=== PATIENT | male | born 1965 | race Caucasian/White ===

== ENCOUNTER 2024-03-27 14:48 | Emergency (ER) | payer SELFPAY ==
[2024-03-27 14:49] VITALS: BP 155/92; PULSE 65; RESP 18; TEMP 36.7; O2SAT 99; BMI 30.1
--- NOTE | 2024-03-27 15:08 | CTR_ITS ---
PROCEDURE INFORMATION: Exam: CT Lumbar Spine Without Contrast Exam date and time: 03/27/2024 3:49 PM Age: 58 years old Clinical indication: Injury or trauma; Fall; Blunt trauma (contusions or hematomas); Additional info: Trauma, fall, tenderness TECHNIQUE: Imaging protocol: Computed tomography of the lumbar spine without contrast. Radiation optimization: All CT scans at this facility use at least one of these dose optimization techniques: automated exposure control; mA and/or kV adjustment per patient size (includes targeted exams where dose is matched to clinical indication); or iterative reconstruction. COMPARISON: CT thoracic spin wo con* [id number] 03/27/2024 3:43 PM RADIATION DOSE METRICS: Total DLP (mGy-cm): 858.33 FINDINGS: Bones/joints: No acute fracture. Normal alignment. Prominent disc bulge at L2-L3, L4-L5, and L5-S1 with moderate areas of central canal stenosis at these levels. Soft tissues: Unremarkable. CT/CT lumbar spine wo con* [id number] IMPRESSION: No acute findings.
--- NOTE | 2024-03-27 15:08 | CTR_ITS ---
PROCEDURE INFORMATION: Exam: CT Head Without Contrast Exam date and time: 03/27/2024 3:33 PM Age: 58 years old Clinical indication: Injury or trauma; Fall; Blunt trauma (contusions or hematomas); Additional info: Trauma, fall, tenderness TECHNIQUE: Imaging protocol: Computed tomography of the head without contrast. Radiation optimization: All CT scans at this facility use at least one of these dose optimization techniques: automated exposure control; mA and/or kV adjustment per patient size (includes targeted exams where dose is matched to clinical indication); or iterative reconstruction. COMPARISON: CT head wo con* [id number] 08/21/2018 4:34 PM RADIATION DOSE METRICS: Total DLP (mGy-cm): 1013.18 FINDINGS: Brain: Normal. No hemorrhage. Unremarkable white matter. No mass effect. Cerebral ventricles: No ventriculomegaly. Paranasal sinuses: Visualized sinuses are unremarkable. No fluid levels. Mastoid air cells: Visualized mastoid air cells are well aerated. Bones: Unremarkable. No acute fracture. Soft tissues: Unremarkable. CT/CT head wo con* [id number] IMPRESSION: No acute intracranial abnormality.
--- NOTE | 2024-03-27 15:08 | CTR_ITS ---
PROCEDURE INFORMATION: Exam: CT Thoracic Spine Without Contrast Exam date and time: 03/27/2024 3:43 PM Age: 58 years old Clinical indication: Injury or trauma; Fall; Blunt trauma (contusions or hematomas); Additional info: Trauma, fall, tenderness TECHNIQUE: Imaging protocol: Computed tomography of the thoracic spine without contrast. Radiation optimization: All CT scans at this facility use at least one of these dose optimization techniques: automated exposure control; mA and/or kV adjustment per patient size (includes targeted exams where dose is matched to clinical indication); or iterative reconstruction. COMPARISON: CT chest wo con [id number] 03/27/2024 3:40 PM RADIATION DOSE METRICS: Total DLP (mGy-cm): 1851.2 FINDINGS: Bones/joints: No acute fracture. Normal alignment. No significant disc bulge or herniation. No severe spinal canal stenosis. No significant neural foraminal narrowing. Soft tissues: Unremarkable. CT/CT thoracic spin wo con* [id number] IMPRESSION: No acute findings.
--- NOTE | 2024-03-27 15:08 | XRR_ITS ---
PROCEDURE INFORMATION: Exam: XR Pelvis Exam date and time: 03/27/2024 3:22 PM Age: 58 years old Clinical indication: Injury or trauma; Fall; Blunt trauma (contusions or hematomas); Bilateral; Pelvic region; Additional info: Trauma, fall, tenderness TECHNIQUE: Imaging protocol: Radiologic exam of the pelvis. Views: 1 or 2 view. COMPARISON: No relevant prior studies available. FINDINGS: Bones/joints: Unremarkable. No acute fracture. Soft tissues: Unremarkable. XR/XR pelvis 1-2V* [id number] IMPRESSION: No acute findings.
--- NOTE | 2024-03-27 15:08 | XRR_ITS ---
PROCEDURE INFORMATION: Exam: XR Chest Exam date and time: 03/27/2024 3:25 PM Age: 58 years old Clinical indication: Injury or trauma; Fall; Blunt trauma (contusions or hematomas); Additional info: Trauma, fall, tenderness TECHNIQUE: Imaging protocol: Radiologic exam of the chest. Views: 2 views. COMPARISON: CR XR chest 1V [id number] 08/21/2018 4:18 PM FINDINGS: Lungs: Unremarkable. No consolidation. Pleural spaces: Unremarkable. No pleural effusion. No pneumothorax. Heart/Mediastinum: Unremarkable. No cardiomegaly. Bones/joints: Unremarkable. XR/XR chest 2V* [id number] IMPRESSION: No acute findings.
--- NOTE | 2024-03-27 15:08 | CTR_ITS ---
PROCEDURE INFORMATION: Exam: CT Chest Without Contrast; Diagnostic Exam date and time: 03/27/2024 3:40 PM Age: 58 years old Clinical indication: Injury or trauma; Fall; Blunt trauma (contusions or hematomas); Additional info: Trauma, fall, tenderness TECHNIQUE: Imaging protocol: Diagnostic computed tomography of the chest without contrast. Radiation optimization: All CT scans at this facility use at least one of these dose optimization techniques: automated exposure control; mA and/or kV adjustment per patient size (includes targeted exams where dose is matched to clinical indication); or iterative reconstruction. COMPARISON: CR XR chest 2V* [id number] 03/27/2024 3:25 PM RADIATION DOSE METRICS: Total DLP (mGy-cm): 497.05 FINDINGS: Lungs: Unremarkable. No consolidation. No masses. Pleural spaces: Unremarkable. No pneumothorax. No pleural effusion. Heart: Coronary artery calcifications present. No cardiomegaly. No pericardial effusion. Lymph nodes: Unremarkable. No enlarged lymph nodes. Vasculature: Unremarkable. No aortic aneurysm. Bones/joints: Unremarkable. No acute fracture. Soft tissues: Unremarkable. CT/CT chest con [id number] IMPRESSION: No acute findings.
--- NOTE | 2024-03-27 15:08 | CTR_ITS ---
PROCEDURE INFORMATION: Exam: CT Cervical Spine Without Contrast Exam date and time: 03/27/2024 3:37 PM Age: 58 years old Clinical indication: Injury or trauma; Fall; Blunt trauma; Additional info: Trauma, fall, tenderness TECHNIQUE: Imaging protocol: Computed tomography of the cervical spine without contrast. Radiation optimization: All CT scans at this facility use at least one of these dose optimization techniques: automated exposure control; mA and/or kV adjustment per patient size (includes targeted exams where dose is matched to clinical indication); or iterative reconstruction. COMPARISON: CT head wo con* [id number] 03/27/2024 3:33 PM RADIATION DOSE METRICS: Total DLP (mGy-cm): 196.17 FINDINGS: Bones: No acute fracture. Normal alignment. Prominent disc bulges at C3-C4 and C4-C5 moderate central canal stenosis. Lungs: Lung apices are normal. Soft tissues: Unremarkable. CT/CT cervical spin wo con* [id number] IMPRESSION: No acute findings.
[2024-03-27 15:32] LABS: Bilirubin Urine Negative (Negative); Blood Urine Negative (Negative); Glucose Urine UA Negative (Normal); Ketones Urine Trace (Negative); Leukocyte Esterase Urine Negative (Negative); Nitrate Urine Negative (Negative); Protein Urine Negative (Negative); Specific Gravity, Urine 1.023 (1.005-1.030); Urine Appearance Clear (CLEAR); Urine Color Yellow (Yellow); pH Urine 5.5 (5-7)
[2024-03-27 15:38] LABS: Add Urine Microscopic? YES; Bacteria Urine None Seen /hpf; Hyaline Casts Urine 1.65 /lpf; RBC Urine 0-2 /hpf (0-2); Squamous Epithelial Cell Urine 0-5 /hpf (0-5); WBC Urine 0-5 /hpf (0-5)
[2024-03-27 16:12] VITALS: BP 155/91; PULSE 60; RESP 16; O2SAT 98
[2024-03-27 16:42] LABS: Basophils % 0.3 %; Eosinophils # 0.1 10^3/uL (0.0-0.8); Hematocrit 39.4 % (37-53); Lymphocytes # 1.2 10^3/uL (0.8-4.8); Lymphocytes % 13.1 %; Mean Corpuscular HGB Conc 34.3 g/dL (30-55); Mean Corpuscular Hemoglobin 30.2 pg (27-33); Mean Corpuscular Volume 88.1 fl (82-101); Mean Platelet Volume 9.8 fL (7.4-10.4); Monocytes # 0.6 10^3/uL (0.2-0.9); Neutrophils # 6.99 10^3/uL (1.8-7.7); Neutrophils % 78.2 %; Nucleated Red Blood Cells % 0 %; Platelet Count 259 10^3/cmm (157-399); Red Blood Count 4.47 10^6/uL (3.85-5.65); Red Cell Distribution Width 12.7 % (12.1-15.1); White Blood Count 8.95 10^3/uL (3.29-11.43)
[2024-03-27 16:59] LABS: Alanine Aminotransferase 34 U/L (0-41); Albumin Level 4.2 g/dL (3.5-5.2); Alkaline Phosphatase 73 U/L (40-130); Anion Gap 13.7 (5-19); Aspartate Amino Transferase 23 U/L (0-40); Blood Urea Nitrogen 22 mg/dL (6-20); Calcium 9.6 mg/dL (8.5-10.5); Carbon Dioxide 26 mmol/L (22-29); Chloride 101 mmol/L (98-107); Creatinine Clr Calc Pharmacy 93.2768; Globulin 2.8 g/dL (1.3-4.6); Glomerular Filtration Rate 76.7 mL/min (90-130); Glucose 150 mg/dL (65-115); Osmolality Calculated 290 mOsm/kg (285-295); Potassium 3.7 mmol/L (3.5-5.1); Sodium 137 mmol/L (136-145); Total Bilirubin 0.5 mg/dL (0.15-1.2)
--- NOTE | 2024-03-27 17:15 | ED_ITS ---
HPI - Back Pain/Injury 2 General: Chief Complaint: Back Pain/Injury Stated Complaint: fall Time Seen by Provider: 03/27/24 14:51 History of Present Illness: Jam Lindsay is a 58-year-old man that presents to the emergency department after a fall from height. Patient reports he was on a roof when he fell through it landing on a pile of lumber. Estimated height 7 feet. He reports he landed mostly on his back but did strike his neck and head on a piece of lumber. He denies loss of consciousness. He denies anticoagulants/antiplatelets. Patient has a medical history that includes hyperlipidemia, diabetes, hypertension. He uses chewing tobacco He denies routine alcohol use or illicit substance use. Associated symptoms: Deny abdominal pain, chills, difficulty walking, dysuria, fatigue, fever(s), hematuria, nausea, urinary urgency or vomiting Related Data Home Medications Medication Instructions Recorded Confirmed amlodipine 10 mg tablet 10 mg PO DAILY 03/27/24 03/27/24 atorvastatin 10 mg tablet 10 mg PO DAILY 03/27/24 03/27/24 metformin 500 mg tablet,extended 500 mg PO DAILY 03/27/24 03/27/24 release 24 hr metoprolol tartrate 25 mg tablet 25 mg PO DAILY 03/27/24 03/27/24 sertraline 50 mg tablet 50 mg PO DAILY 03/27/24 03/27/24 telmisartan 80 1 tab PO DAILY 03/27/24 03/27/24 mg-hydrochlorothiazide 25 mg tablet Allergies Allergy/AdvReac Type Severity Reaction Status Date / Time No Known Allergies Allergy Verified 03/27/24 14:55 Review of Systems 2 General: Reports: 10 or more systems reviewed and unremarkable except in HPI and below Const: Denies: fever(s), chills, change in appetite, change in weight, fatigue or malaise Eyes: Denies: change in vision, eye discomfort, eye discharge or eye redness Card: Denies: chest pain, palpitations, irregular heart rhythm, edema, dyspnea on exertion, orthopnea or leg pain with exertion Resp: Denies: dyspnea, productive cough, non-productive cough, wheezing, stridor or chest congestion GI: Denies: abdominal pain, nausea, vomiting, dysphagia, diarrhea, constipation, bloating, GI cramping or hematochezia : Denies: flank pain, dysuria, urinary frequency, urinary urgency, urinary hesitancy, oliguria or hematuria Musc: Reports: neck pain, back pain, joint stiffness and muscle cramps; Denies: extremity pain, joint pain, joint swelling, joint redness, joint warmth or muscle weakness Skin/Breast: Denies: rash, pruritus, erythema, photosensitivity or new lesions Neuro: Denies: headache(s), numbness in extremities, weakness in extremities, sensory changes, lack of coordination, difficulty walking, frequent falls, dizziness, confusion, Slurred speech present, difficulty communicating thoughts, seizure-like activity or involuntary movements Jonathan/Lymph: Denies: easy bruising or easy bleeding Physical Exam 2 Const: COMMON NORMALS: no acute distress, patient oriented x3 and alert G ENERAL APPEARANCE: cooperative ORIENTATION/CONSCIOUSNESS: Yes awake, Yes oriented to person, Yes oriented to place and Yes oriented to time HENMT: COMMON NORMALS: normocephalic and atraumatic HEAD & SCALP: n ormocephalic and atraumatic FACE & SINUS: normal facial exam MOUTH: Normal oral and palatal mucosa present THROAT: posterior oropharynx normal Eye: COMMON NORMALS: Equal, round and reactive pupils present, EOMs intact bilaterally, conjunctivae normal and no scleral icterus GENERAL EYE: a ppearance normal, both eyes and all related structures ALIGNMENT: Yes alignment normal PERIORBITAL: periorbital findings normal CONJUNCTIVA: Yes conjunctivae normal PUPIL: Yes Equal, round and reactive pupils present Neck/C-Spine: GENERAL: Yes normal visual inspection CERVICAL SPINE: Yes Cervical spine tenderness, Yes Paracervical muscle tenderness, Yes Trapezius muscle tenderness and Yes collar present OTHER: Cramping pain in the C4, C5, C6 distribution in the left upper extremity Numbness and tingling in the left hand?C7 and C8 distribution but this is chronic and he reports it is due to carpal tunnel. 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, wrist, bicep triceps and deltoid Sensation intact to light touch throughout Lymph: LYMPHATIC: no lymphadenopathy noted Chest: COMMONS NORMALS: normal inspection of the chest Breast/axilla inspection: Yes no chest deformity, asymmetry, normal contours, no nodules, masses, tenderness Resp: COMMON NORMALS: normal respiratory effort, No retractions, No use of accessory muscles and clear to auscultation bilaterally EFFORT & INSPECTION: Yes able to speak in complete sentences and Yes symmetric chest movement A USCULTATION: clear to auscultation bilaterally Cardio: COMMON NORMALS: regular rate, regular rhythm and Peripheral pulses 2+ throughout RATE: regular rate RHYTHM: regular rhythm PERIPHERAL PULSES: Peripheral pulses 2+ throughout GI: COMMON NORMALS: Normal to inspection, nondistended, normoactive bowel sounds present, Soft to palpation, non-tender and No hepatosplenomegaly present INSPECTION: Yes normal to inspection AUSCULTATION: Yes normoactive bowel sounds PALPATION: Yes Soft to palpation and Yes No hepatosplenomegaly present RECTAL EXAM: Yes deferred Back/Pelvis: OTHER: Tenderness to palpation over the thoracic spine midline Tenderness to palpation over lumbar spine midline Denies pain numbness tingling in the lower extremities. 5/5 strength hip flexor, quad, gastroc, ant tib, toe extensors. Sensation intact to light touch throughout Extremity: COMMON NORMALS: normal to inspection GENERAL: Yes normal exam except as noted Neuro: COMMON NORMALS: patient oriented x3 SENSORIUM/ORIENTATION: Yes alert, Yes oriented to person, Yes oriented to place and Yes oriented to time CRANIAL NERVES: Yes CN normal except as noted Psych: COMMON NORMALS: mental status grossly normal, Normal thought process present, cooperative, activity/motor behavior normal, denies homicidal ideation and denies suicidal ideation THOUGHT PROCESS: Normal thought process present Skin: COMMON NORMALS: no rashes or lesions noted, no wounds and turgor normal GENERAL SKIN EXAM: no rashes or lesions noted and turgor normal Course 2 Vital Signs: Vital signs: Vital Signs Temperature 98.1 F 03/27/24 14:49 Pulse Rate 60 03/27/24 16:12 Respiratory Rate 16 03/27/24 16:12 Blood Pressure 155/91 03/27/24 16:12 Pulse Oximetry 98 03/27/24 16:12 Oxygen Delivery Me thod Room Air 03/27/24 16:12 MDM - Back Pain/Injury Medical Decision Making Patient was evaluated in the emergency department today after a fall from 7 feet. Patient reports he fell through a roof landing on a pile of lumber. He had no loss of consciousness He underwent a chest x-ray as well as a pelvis x-ray which revealed no acute findings. We ordered a CT head, cervical, thoracic, lumbar spine as well as a chest without contrast. CT head was unremarkable. CT cervical spine revealed no fractures but Prominent disc bulges at C3-C4 and C4-C5 moderate central canal stenosis. The thoracic spine was read as negative . CT of the lumbar spine revealed no acute findings but there is Prominent disc bulge at L2-L3, L4-L5, and L5-S1 with moderate areas of central canal stenosis at these levels. The CT chest was unremarkable. An MRI would be useful in evaluating the cervical and lumbar spine further. Unfortunately do not have this available at this time. Patient was offered transfer to another facility for further evaluation but is declining. He was not compliant while here in the emergency department with the cervical collar placement. I did reexamine the patient after finding him sitting upright without the collar. He did not originally complain of any radicular type symptoms in the upper extremities but on reexam has cramping sensation in the anterior chest around the left clavicle that goes into the bicep and down the deltoid. There is no weakness appreciated. He denies numbness or tingling. I placed him in a Dundy J collar and advised him that he would benefit from MR imaging. He is elected to follow-up with primary care as well as Dr. Mendoza here in [place]. I reviewed his case with Dr. Choudhary. Dr. Choudhary is agreeable with plan to leave him in a collar, limit his activity, limit his weight lifting activity, and having him follow-up with Dr. Mendoza. I reviewed my recommendations with patient as well as his family member. All are in agreement. He has been advised to return promptly to the emergency department should he develop weakness, numbness, tingling or worsening pain. Labs 03/27/24 16:05 03/27/24 16:05 Radiology Impressions Cervical Spine CT 03/27/24 15:08 IMPRESSION: No acute findings. Chest CT 03/27/24 15:08 IMPRESSION: No acute findings. Chest X-Ray 03/27/24 15:08 IMPRESSION: No acute findings. Head CT 03/27/24 15:08 IMPRESSION: No acute intracranial abnormality. Lumbar Spine CT 03/27/24 15:08 IMPRESSION: No acute findings. Pelvis X-Ray 03/27/24 15:08 IMPRESSION: No acute findings. Thoracic Spine CT 03/27/24 15:08 IMPRESSION: No acute findings. Laboratory Results WBC 8.95 10^3/uL (3.29-11.43) 03/27/24 16:05 RBC 4.47 10^6/uL (3.85-5.65) 03/27/24 16:05 Hgb 13.50 g/dL (11.27-16.99) 03/27/24 16:05 Hct 39.4 % (37-53) 03/27/24 16:05 MCV 88.1 fl (82-101) 03/27/24 16:05 MCH 30.2 pg (27-33) 03/27/24 16:05 MCHC 34.3 g/dL (30-55) 03/27/24 16:05 RDW 12.7 % (12.1-15.1) 03/27/24 16:05 Plt Count 259 10^3/cmm (157-399) 03/27/24 16:05 MPV 9.8 fL (7.4-10.4) 03/27/24 16:05 Neut % (Auto) 78.2 % 03/27/24 16:05 Lymph % (Auto) 13.1 % 03/27/24 16:05 Fisher % (Auto) 7.0 % 03/27/24 16:05 Eos % (Auto) 1.0 % 03/27/24 16:05 Baso % (Auto) 0.3 % 03/27/24 16:05 Neut # (Auto) 6.99 10^3/uL (1.8-7.7) 03/27/24 16:05 Lymph # (Auto) 1.2 10^3/uL (0.8-4.8) 03/27/24 16:05 Fisher # (Auto) 0.6 10^3/uL (0.2-0.9) 03/27/24 16:05 Eos # (Auto) 0.1 10^3/uL (0.0-0.8) 03/27/24 16:05 Baso # (Auto) 0.0 10^3/uL (0.0-0.1) 03/27/24 16:05 Nucleated RBC % (auto) 0 % 03/27/24 16:05 Nucleated RBCs # 0.0 /100WBC 03/27/24 16:05 Sodium 137 mmol/L (136-145) 03/27/24 16:05 Potassium 3.7 mmol/L (3.5-5.1) 03/27/24 16:05 Chloride 101 mmol/L (98-107) 03/27/24 16:05 Carbon Dioxide 26 mmol/L (22-29) 03/27/24 16:05 Anion Gap 13.7 (5-19) 03/27/24 16:05 BUN 22 mg/dL (6-20) H 03/27/24 16:05 Creatinine 1.0 mg/dL (0.7-1.2) 03/27/24 16:05 GFR Calculation 76.7 mL/min (90-130) L 03/27/24 16:05 Glucose 150 mg/dL (65-115) H 03/27/24 16:05 Calculated Osmolality 290 mOsm/kg (285-295) 03/27/24 16:05 Calcium 9.6 mg/dL (8.5-10.5) 03/27/24 16:05 Total Bilirubin 0.5 mg/dL (0.15-1.2) 03/27/24 16:05 AST 23 U/L (0-40) 03/27/24 16:05 ALT 34 U/L (0-41) 03/27/24 16:05 Alkaline Phosphatase 73 U/L (40-130) 03/27/24 16:05 Total Protein 7.0 g/dL (6.6-8.7) 03/27/24 16:05 Albumin 4.2 g/dL (3.5-5.2) 03/27/24 16:05 Globulin 2.8 g/dL (1.3-4.6) 03/27/24 16:05 Urine Color Yellow (Yellow) 03/27/24 15:22 Urine Appearance Clear (CLEAR) 03/27/24 15:22 Urine pH 5.5 (5-7) 03/27/24 15:22 Ur Specific [place] 1.023 (1.005-1.030) 03/27/24 15:22 Urine Protein Negative (Negative) 03/27/24 15:22 Urine Glucose (UA) Negative (Normal) 03/27/24 15:22 Urine Ketones Trace (Negative) 03/27/24 15:22 Urine Blood Negative (Negative) 03/27/24 15:22 Urine Nitrate Negative (Negative) 03/27/24 15:22 Urine Bilirubin Negative (Negative) 03/27/24 15:22 Urine Urobilinogen 1.0 mg/dL (Negative) 03/27/24 15:22 Ur Leukocyte Esterase Negative (Negative) 03/27/24 15:22 Urine RBC 0-2 /hpf (0-2) 03/27/24 15:22 Urine WBC 0-5 /hpf (0-5) 03/27/24 15:22 Ur Squamous Epith Cells 0-5 /hpf (0-5) 03/27/24 15:22 Amorphous Sediment Not Reportable 03/27/24 15:22 Urine Bacteria None seen /hpf (NONE) 03/27/24 15:22 Hyaline Casts 1.65 /lpf 03/27/24 15:22 All radiology interpretation(s) finalized by discharge Discharge Plan Discharge Patient Disposition: Home Clinical Impression: Cervical spine pain, Bulge of cervical disc without myelopathy, Cervical disc disorder at C4-C5 level with radiculopathy, Fall, Thoracic back pain Condition: Stable Prescriptions: No Action atorvastatin 10 mg tablet 10 mg PO DAILY amlodipine 10 mg tablet 10 mg PO DAILY metformin 500 mg tablet extended release 24 hr 500 mg PO DAILY sertraline 50 mg tablet 50 mg PO DAILY metoprolol tartrate 25 mg tablet 25 mg PO DAILY telmisartan-hydrochlorothiazid 80-25 mg tablet 1 tab PO DAILY Discharge Orders: Discharge ED (Routine); Ordered 03/27/24 Ordered By: Ana Paula Navarrete Referrals: Bob Mendoza DO [Physician] - (Fall, cervical spine tenderness, C4-5 disc bulge with radiculopathy in the LUE after fall. ) Nick Hannah FNP [Primary Care Provider] - Discharge Diet: Advance as tolerated Discharge Activity: Limit activity as instructed Patient Instructions: Cervical Strain (ED), Cervical Disc Herniation (ED), Cervical Radiculopathy (ED), Pain Management Activity Restrictions/Additional Instructions: Please wear your cervical collar until you follow-up as discussed. No lifting pushing or pulling more than 10 pounds I want you to shower and your collar. We have provided you with extra pads to exchange when showering is complete. 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 Follow-up with primary care as well as Dr. Mendoza this next week. Call for appointments. Coding Level of Care Code ED Senior Sales Associate for [employer]
[2024-03-27 18:06] VITALS: BP 179/101; PULSE 59; RESP 16; O2SAT 97
== END 2024-03-27 18:07 | disposition home or self-care (01) ==
PROVIDERS: Emergency Provider Nurse Practitioner; Family Provider Nurse Practitioner Family; PCP Nurse Practitioner Family
DX: M50.31 Other cervical disc degeneration, high cervical region (principal); M48.02 Spinal stenosis, cervical region; M50.121 Cervical disc disorder at C4-C5 level with radiculopathy; M54.6 Pain in thoracic spine; Z79.84 Long term (current) use of oral hypoglycemic drugs; W17.89XA Other fall from one level to another, initial encounter
CPT/HCPCS: 36415; 70450; 71046; 71250; 72125; 72128; 72131; 72170; 80053; 81001; 85025; 99284